=== PATIENT | female | born 1980 | race Caucasian/White ===

== ENCOUNTER 2021-08-25 22:18 | Observation (INO) | payer OTHER, SELFPAY ==
[2021-08-25 22:19] VITALS: BP 130/82; PULSE 106; RESP 17; TEMP 36.6; O2SAT 93; BMI 28.3
--- NOTE | 2021-08-25 22:36 | ED.VIS.GI ---
HPI HPI - GI History of Present Illness Chief Complaint: Abd Pain Informant: patient Abdominal Pain/Flank Pain Onset: Today Context: Sudden Onset Timing: Continuous Quality: Sharp Location: Epigastric, RUQ, LUQ and RLQ Worsened by: Movement Relieved by: Nothing Nausea/Vomiting/Emesis GI Symptom: Positive for Nausea and Vomiting Quality: Negative for Coffee ground and Hematemesis Diarrhea/Melena/Hematochezia GI Symptom: Positive for Diarrhea; Negative for Melena and Hematochezia Associated Symptoms Associated Symptoms: Negative for Dysuria, Frequency and Hematuria Narrative Narrative: Patient presents with abdominal pain that began earlier this morning. Patient states it woke her up out of sleep. Patient states it is constant. Patient states the pain is sharp. Patient states the pain is over the upper abdomen and right lower quadrant. Patient states it is worse with movement and with standing. Patient admits to nausea and one episode of vomiting. Patient denies any hematemesis or coffee-ground emesis. Patient admits to some diarrhea but denies any melena or hematochezia. Patient denies any dysuria, frequency, or hematuria. Patient states she tested positive for COVID-19 earlier today. PFSH PFS Medical History COVID-19 Former smoker Medical History no medical history no medical history Home Medications No Known/Unobtainable [No Known Home Medications] 02/24/17 [History Last Taken Unknown] Allergy/AdvReac Type Severity Reaction Status Date / Time No Known Allergies Allergy Verified 08/25/21 22:22 Surgical History no surgical history no surgical history Social History Smoking Status: Former smoker ROS ROS ED Constitutional Constitutional ED: Denies chills or fever(s) Eyes Eyes: Denies blurry vision or change in vision ENT ENT ED: Reports rhinorrhea and sore throat Cardiovascular Cardiovascular: Denies chest pain or palpitations Respiratory/Chest Respiratory/Chest: Reports cough; Denies dyspnea Gastrointestinal Gastrointestinal: Reports abdominal pain, diarrhea, nausea and vomiting; Denies melena Genitourinary Genitourinary ED: Denies dysuria or hematuria Musculoskeletal Musculoskeletal: Denies back pain or neck pain Integumentary Denies abscess or rash Neurologic Neurologic: Denies headache(s) or weakness Allergic/Immunologic Allergic/Immunologic ED: Denies mouth swelling or urticaria EXAM Physical Exam Const Vital Signs: 08/25/21 22:19 08/25/21 22:47 Temperature 97.9 F Temperature Source Oral Pulse Rate 106 H 94 Respiratory Rate 17 15 Blood Pressure 130/82 H 115/77 Blood Pressure Mean 98 89 Pulse Ox 93 98 Oxygen Delivery Method Room Air Room Air Positive well nourished and well developed General Appearance ED: well developed HEENT Reports moist mucous membranes Neck supple and no JVD Resp normal respiratory effort and clear to auscultation bilaterally Cardio regular rate and regular rhythm GI non-distended GI Narrative: Patient was able to sit up on her without any difficulty. Auscultation: normoactive bowel sounds Palpation: soft and tender epigastric, RLQ, LUQ and RUQ; Negative for guarding Neuro CN's II-XII intact bilaterally, moves all extremities and no sensory deficits noted Sensorium / Orientation: alert, oriented to person, oriented to place and oriented to time Motor Exam: strength 5/5 throughout Psych mental status grossly normal MDM MDM MDM Narrative Medical decision making narrative: Patient was given IV fluids, morphine, and Zofran. CBC was within normal limits. PT was INR and PTT were normal. Comprehensive metabolic profile was within normal limits. Lipase was normal. Serum hCG was negative. COVID-19 rapid antigen was obtained and was positive. CT scan of the abdomen and pelvis was obtained and is pending. Care of the patient was turned over to the oncoming physician pending CT scan results. Lab Data Attestation: I reviewed the patient's lab results. Labs: Laboratory Results - last 24 hr 08/25/21 08/25/21 08/25/21 23:07 23:07 23:07 WBC 10.2 RBC 4.32 Hgb 12.9 Hct 37.0 MCV 85.6 MCH 29.9 MCHC 34.9 RDW Std Deviation 36.4 RDW Coeff of Rosamaria 11.7 Plt Count 300 MPV 9.7 Immature Gran % (Auto) 0.900 Neut % (Auto) 77.5 H Lymph % (Auto) 13.7 L Cherry % (Auto) 7.6 Eos % (Auto) 0.2 Baso % (Auto) 0.1 Absolute Neuts (auto) 7.9 H Absolute Lymphs (auto) 1.40 Nucleated RBC % 0 PT 12.6 INR 1.0 APTT 29.8 Sodium 134 L Potassium 3.3 L Chloride 102 Carbon Dioxide 23.0 Anion Gap 9 BUN 5 L Creatinine 0.77 Estim Creat Clear Calc 79.54 Est GFR (MDRD) Af Amer 106 Est GFR (MDRD) Non-Af 88 BUN/Creatinine Ratio 6.5 L Glucose 122 H Calcium 9.0 Total Bilirubin 0.50 AST 14 L ALT 20 Alkaline Phosphatase 71 Total Protein 7.4 Albumin 3.5 Globulin 3.9 Albumin/Globulin Ratio 0.9 Lipase 74 Serum , Qual 08/25/21 23:07 WBC RBC Hgb Hct MCV MCH MCHC RDW Std Deviation RDW Coeff of Rosamaria Plt Count MPV Immature Gran % (Auto) Neut % (Auto) Lymph % (Auto) Cherry % (Auto) Eos % (Auto) Baso % (Auto) Absolute Neuts (auto) Absolute Lymphs (auto) Nucleated RBC % PT INR APTT Sodium Potassium Chloride Carbon Dioxide Anion Gap BUN Creatinine Estim Creat Clear Calc Est GFR (MDRD) Af Amer Est GFR (MDRD) Non-Af BUN/Creatinine Ratio Glucose Calcium Total Bilirubin AST ALT Alkaline Phosphatase Total Protein Albumin Globulin Albumin/Globulin Ratio Lipase Serum , Qual NEGATIVE Discharge Plan Triage Chief Complaint: Abd Pain ED Provider: Messi Lobo Dx/Rx/DC Orders Clinical Impression: Abdominal pain Instructions: ED Abdominal Pain Unkn Cause Fem Prescriptions: No Action No Known Home Medications RF: 0 Primary Care Provider: Alyse Pierce Referrals: Alyse Pierce DO [Primary Care Provider] - 3-5 Days Disposition Disposition: Home, Self Care
[2021-08-25 22:47] VITALS: BP 115/77; PULSE 94; RESP 15; O2SAT 98
[2021-08-25] MEDS: Morphine 4 MG/ML Syringe IV (23:04)
[2021-08-25] MEDS: Ondansetron 4 MG/2 ML Vial IV (23:04)
[2021-08-25] MEDS: 0.9% Normal Saline 1,000 ML 1000 ML IV (23:04)
[2021-08-25 23:30] LABS: Prothrombin Time (Protime)PT. 12.6 SECONDS (11.7-14.9)
[2021-08-25 23:31] LABS: ALB/GLOB Ratio 0.9 RATIO (0.9-2.4); AST(SGOT) 14 U/L (15-37); Alanine Aminotransfer ALT/SGPT 20 U/L (13-56); Albumin, Serum 3.5 g/dL (3.2-5.0); Alkaline Phosphatase 71 U/L (45-117); Anion Gap 9 (5-15); BUN 5 mg/dL (7-18); BUN/Creat Ratio 6.5 RATIO (10-20); Chloride 102 mmol/L (98-107); Creatinine, Serum 0.77 mg/dL (0.55-1.02); EST Glomerular Filtration Rate 88 mL/min (>60); Est Glom Filt Rate - Afr Amer 106 mL/min (>60); Estimated Creatinine Clearance 79.54 ml/min; Globulin 3.9 g/dL (2.2-4.2); Glucose 122 mg/dL (74-106); Lipase 74 U/L (73-393); Partial Thromboplast Time 29.8 Seconds (24.1-36.2); Potassium 3.3 mmol/L (3.5-5.1); Protein, Total 7.4 g/dL (6.4-8.2); Sodium Level 134 mmol/L (136-145)
[2021-08-25 23:32] LABS: Hemoglobin 12.9 g/dL (12.0-15.0); Red Blood Count 4.32 M/mm3 (4.2-5.4); White Blood Count 10.2 K/mm3 (4.4-11.0)
[2021-08-25 23:33] LABS: Absolute Neutrophil Count 7.9 X10^3/uL (2.0-7.7); Basophil# 0.01 X10^3/uL; Basophil% 0.1 % (0-1); Eosinophil# 0.02 X10^3/uL; Eosinophils% 0.2 % (0-5); Lymphocyte % 13.7 % (19-41); Mean Corp Hgb Conc 34.9 g/dL (32-36); Mean Corpuscular Hgb 29.9 pg (27.0-32.0); Mean Corpuscular Volume 85.6 fL (81-99); Mean Platelet Vol. 9.7 fl (6.2-12.0); Monocyte# 0.78 X10^3/uL; Monocyte% 7.6 % (0-10); NRBC Flagged by Analyzer 0 % (0-5); Neutrophil % 77.5 % (47-70); Platelet Count 300 K/mm3 (150-450); RBC Distribution Width CV 11.7 % (11.6-14.6); RBC Distribution Width SD 36.4 fl (35.1-43.9)
[2021-08-25 23:48] LABS: Internal QC Validated? YES +Cl - CLEAR BKGD; Pregnancy, Serum, hCG Quali. NEGATIVE Negative
[2021-08-26] VITALS (13 sets, daily range): BP systolic 91–111; BP diastolic 48–79; PULSE 60–101; RESP 15–16; TEMP 36.1–37.1; O2SAT 94–99; BMI 28.3
--- NOTE | 2021-08-26 | APP_PTH ---
PATIENT: PIOTR REDDY LOC: MS3 U#:[id number] AGE/SX: 41/F ROOM: LA317 RE08/26/[address]: Dr. Latrice Suárez MD : 1980 BED: 1 DIS: 08/26/2021 SPEC #: [id number] RECD: 08/26/21 12:43 STATUS: MERRILL COONEYEduardo #: [id number] PENELOPE: 08/26/21 00:[address]: Latrice Suárez DEPT: SURGICAL PATHOLOGY RECD BY: Vimal Schmidt ENTERED: 08/26/21 12:44 SP TYPE: APPENDIX OTHR DR: Dr. Alyse Pierce, DO Tissues: Appendix, NOS Procedures: Surgery Specimen Level III HEADER OPERATION: Laparoscopic appendectomy PRE-OP DIAGNOSIS: Acute appendicitis, COVID-19 TISSUE SUBMITTED: Appendix MICROSCOPIC DIAGNOSIS Appendix, appendectomy: Acute necrotizing appendicitis. Acute serositis. AM:ba 08/27/2021 MICROSCOPIC DESCRIPTION Slides are reviewed. GROSS DESCRIPTION Received in fixative is one container labeled with the patient's name and designated appendix. The specimen consists of a vermiform appendix measuring 7 cm in length and 0.8 cm in average diameter. No gross perforations are evident. Serial sections reveal fecal material. No mass lesion is identified. Transit Operations Supervisor sections are submitted in one cassette. / AM:ba 08/26/2021 TC:2 CPT: 06548
[2021-08-26 01:21] LABS: Bacteria 0 SEEN /hpf (None Seen); Mucous, Urine 0 SEEN /hpf (<or=2+); Red Blood Cells-Urine 0 SEEN /hpf (0-5); Squamous Epithelial Cells - UA 0 SEEN /hpf (5-10)
[2021-08-26 01:22] LABS: Color, Urine Yellow (Yellow); Glucose, Dipstick Normal (Normal); Ketone-Dipstick Negative (Negative); Leukocyte Esterase-Dipstick 25 /ul (Negative); Nitrite-Dipstick Negative (Negative); Occult Blood-Urine 25 /ul (Negative); Protein-Dipstick Negative (Negative); Specific Gravity, Urine 1.005 (1.002-1.030); Urine Bilirubin Dipstick Negative (Negative); Urine Clarity Clear (Clear); Urine Urobilinogen Normal (Normal)
[2021-08-26 01:33] LABS: White Blood Cells 0-5 SEEN /hpf (0-5)
[2021-08-26] MEDS: morphine 8 MG/ML Syringe 6 MG IV (01:49)
[2021-08-26] MEDS: Ondansetron 4 MG/2 ML Vial IV (01:49)
--- NOTE | 2021-08-26 04:35 | PCM.HP.STD ---
HPI - General HPI Narrative PIOTR REDDY, is a 41 F who presents to the ER due to right lower quadrant abdominal pain which started at 9 PM yesterday. Patient states although yesterday she had mid abdominal pain. Patient did not have much to eat yesterday. Patient also started to have symptoms of head congestion/scratchy throat about 10 days ago, 3 days into it did do a Covid test which was negative also did an additional 1 which was negative because sore throat. However yesterday with a new abdominal pain she retested and was positive. Test here was also positive. Patient states her symptoms are improved she still has some mild head congestion. Patient denies any issues with breathing and 9% on room air. CT abdomen pelvis was consistent with acute appendicitis. Patient's white blood count was 10.2. Patient to get Zosyn IV in the ER. [facility] Medical History COVID-19 Former smoker Medical History no medical history Home Medications No Known/Unobtainable [No Known Home Medications] 02/24/17 [History Last Taken Unknown] Allergy/AdvReac Type Severity Reaction Status Date / Time No Known Allergies Allergy Verified 08/25/21 22:22 Surgical History no surgical history Social History Smoking Status: Former smoker Vital Signs Vital Signs Vital Signs: 08/25/21 22:19 08/25/21 22:47 08/26/21 01:13 Temperature 97.9 F Temperature Source Oral Pulse Rate 106 H 94 101 H Respiratory Rate 17 15 15 Blood Pressure 130/82 H 115/77 111/79 Blood Pressure Mean 98 89 89 Blood Pressure Source Blood Pressure Position Blood Pressure Location Pulse Ox 93 98 99 Oxygen Delivery Method Room Air Room Air Room Air 08/26/21 02:13 08/26/21 02:14 08/26/21 03:25 Temperature 98.8 F Temperature Source Oral Pulse Rate 96 97 Respiratory Rate 15 15 16 Blood Pressure 110/71 110/71 111/63 Blood Pressure Mean 84 84 79 Blood Pressure Source Monitor Blood Pressure Position Semi-Fowlers Blood Pressure Location Right Arm Pulse Ox 98 95 96 Oxygen Delivery Method Room Air Room Air Room Air Weight Weight: 160 lb Body Mass Index (BMI) 28.3 Physical Exam Const alert, oriented x3 and no apparent distress HEENT normocephalic and head/scalp atraumatic Resp normal respiratory effort Cardio regular rate GI soft to palpation; Negative for non-distended Palpation: tender RLQ; Negative for guarding Extremity no clubbing, cyanosis or edema Neuro CN's II-XII intact bilaterally Psych mental status grossly normal Results Lab / Micro Data Result Diagrams: 08/25/21 23:07 08/25/21 23:07 Labs: Laboratory Results - last 24 hr 08/25/21 23:07: WBC 10.2, RBC 4.32, Hgb 12.9, Hct 37.0, MCV 85.6, MCH 29.9, MCHC 34.9, RDW Std Deviation 36.4, RDW Coeff of Rosamaria 11.7, Plt Count 300, MPV 9.7, Immature Gran % (Auto) 0.900, Neut % (Auto) 77.5 H, Lymph % (Auto) 13.7 L, [place] % (Auto) 7.6, Eos % (Auto) 0.2, Baso % (Auto) 0.1, Absolute Neuts (auto) 7.9 H, Absolute Lymphs (auto) 1.40, Nucleated RBC % 0 08/25/21 23:07: PT 12.6, INR 1.0, APTT 29.8 08/25/21 23:07: Sodium 134 L, Potassium 3.3 L, Chloride 102, Carbon Dioxide 23.0, Anion Gap 9, BUN 5 L, Creatinine 0.77, Estim Creat Clear Calc 79.54, Est GFR (MDRD) Af Amer 106, Est GFR (MDRD) Non-Af 88, BUN/Creatinine Ratio 6.5 L, Glucose 122 H, Calcium 9.0, Total Bilirubin 0.50, AST 14 L, ALT 20, Alkaline Phosphatase 71, Total Protein 7.4, Albumin 3.5, Globulin 3.9, Albumin/Globulin Ratio 0.9, Lipase 74 08/25/21 23:07: Serum , Qual NEGATIVE 08/26/21 01:15: Urine Color Yellow, Urine Clarity Clear, Urine pH 7.0, Ur Specific Letcher 1.005, Urine Protein Negative, Urine Glucose (UA) Normal, Urine Ketones Negative, Urine Occult Blood 25 H, Urine Nitrite Negative, Urine Bilirubin Negative, Urine Urobilinogen Normal, Ur Leukocyte Esterase 25 H, Urine RBC 0 SEEN, Urine WBC 0-5 SEEN, Ur Squamous Epith Cells 0 SEEN, Urine Bacteria 0 SEEN, Urine Mucus 0 SEEN Micro: Microbiology 08/25/21 23:06 Nasal Secretion SARS-CoV-2 Antigen (Rapid) - Final SARS-CoV-2 (COVID 19) Radiology Impression Abdomen/Pelvis CT 08/26/21 22:42 IMPRESSION: Dilated fluid-filled mid appendix with appendiceal wall thickening and mild periappendiceal fat stranding. Findings concerning for early or mild appendicitis. Electronically Signed: Juan Calzada MD at 0:41 EST , Assessment & Plan Assessment/Plan (1) Acute appendicitis: (2) COVID-19: PLAN: 1. Discussed procedure laparoscopic appendectomy, possible open along with the risk but not limited to bleeding, infection/abscess, injury to another organ (small bowel, colon, etc.), adhesion, hernia at incision sites, and anesthesia. Did also discussed with patient she can be at a higher risk due to Covid for respiratory issues currently patient is 99% on room air and has not had any breathing issues and symptoms started about 10 days ago. Also discussed possible issues with blood clots due to Covid. We will plan to give patient some anticoagulation after surgery possible Lovenox versus heparin depending if any pork could begin Lovenox as is allergic. Also instructed patient that postoperatively would recommend be on at least a full-strength aspirin and be up moving around due to possible increased risk with clotting. Did discuss with patient that nonoperative approach has been done for appendicitis however should be in the hospital for several days with IV antibiotics since no guarantee that she would need her appendix out later. Patient was agreeable proceed with surgery. Patient no further questions this time. Was agreeable to proceed. Latrice Suárez M.D. Pager: [phone] [facility] [address] [place] [address], [address] [place] [id number] Office: [phone] Procedure Criteria Elective Risks - COVID COVID Risk Discussion: Patient is Covid positive.
[2021-08-26] MEDS: Bupivacaine Mpf 0.5% 30 ML VIAL (06:10)
--- NOTE | 2021-08-26 06:28 | PCM.OPRPT ---
Report of Operation Date of Procedure: 08/26/21 Pre-Operative Diagnosis: Acute appendicitis, positive Covid Post-Operative Diagnosis: Same Surgery/Procedure Performed:: Laparoscopic appendectomy Surgeon: aLtrice Suárez Type of Anesthesia: General/Supplemental Anesthesiologist: Ramon Thompson Special Medications: Zosyn IV given in ER for acute appendicitis Specimen's removed: Appendix Estimated Blood Loss (mL): < 10 cc Description of Procedure: Indications: 41-year-old female presented to the ER with new right lower quadrant pain yesterday evening at 9 PM. On workup she was found to have acute appendicitis on CT and a white blood count of 10.2 with a left shift. Patient was started on antibiotics in the ER for acute appendicitis-Zosyn IV. Description of the procedure: Covid precautions were also followed for the surgery. The patient was placed on operating table in supine position. General anesthesia was induced. A timeout was completed verifying correct patient, procedure, position and special equipment prior to beginning procedure. Abdomen was prepped and draped in usual sterile fashion. Incision was made in the natural skin line above the umbilicus with a 15 blade scalpel. The fascia was elevated and incised. Entry into the peritoneum was confirmed visually and no bowel was noted in the vicinity of the incision. The Bynum trocar was placed under direct vision. Abdomen insufflated with a pressure of 12-15 mmHg. Patient tolerated insertion well. The scope was inserted and the abdomen inspected. No injuries from initial trocar placement were noted. Minimal amount of fluid was seen in the right lower quadrant. An direct visualization 2 -5 mm trocars were placed one above the symphysis pubis and below the hairline and one in the left lower quadrant lateral to the rectus muscle. Care is taken to avoid injury to the bladder and inferior epigastric vessels. The table was placed in Trendelenburg position with the right side elevated. The appendix was grasped with atraumatic grasper and elevated. It was noted to be inflamed. A window was developed in the mesoappendix at the point between the base of the appendix and the cecum. An endoscopic 45 mm linear cutting stapler blue load was then used to divide and staple the base of the appendix. Enseal was used to divide the mesoappendix The appendix was withdrawn into the Bynum trocar after being placed endoscopically retrieval bag. Appendix was sent to pathology. The appendiceal stump was then irrigated and hemostasis was assured. Fluid was suctioned no other pathology was identified. Secondary trochars were removed under direct visualization. No bleeding was noted trocar sites. The laparoscope withdrawn and the umbilical trocar removed. The abdomen was allowed to collapse through the ultrafilter. Local anesthesia of 20 mL of 0.5% Marcaine was used at the incision sites. The umbilical trocar site was closed with the [id number] 0 Vicryl suture. The skin was closed up to clear sutures of 4-0 Monocryl and Steri-Strips. The patient was extubated. The patient tolerated the procedure well and was taken to the postanesthesia care unit in satisfactory condition. Complications None
[2021-08-26] MEDS: Lactated Ringers 1,000 ML 15 ML IV (07:00)
[2021-08-26] MEDS: 0.9% Normal Saline 1,000 ML 120 ML IV (08:21)
[2021-08-26] MEDS: Aspirin 325 MG Tablet PO (10:22)
[2021-08-26] MEDS: Acetaminophen 325 MG Tablet 650 MG PO (10:22)
--- NOTE | 2021-08-26 11:55 | CASEMGMT ---
GUILHERME MONTERO Assessment: Face to Face with pt for initial transition planning/care coordination assessment. RN WINSTON introduced self and role at [facility], pt voices understanding and consents to assessment. Pt is A/O x4 and answers all questions appropriately at this time. Pt sitting up in chair on RA in no distress. Care providers, pharmacy, and demographics verified/updated. Admitting Dx: acute appendicitis, +COVID PCP:Kari Specialists:Pt denies. Preferred Pharmacy: [facility] Insurance: MMO Prescription Benefit: yes LW/HPOA: Pt denies having a LW/DPOA and denies need for info regarding AD. LNOK: Karol Rodriguez, mother Living Arrangements: Pt lives with 18 year old son in a single story house with 2 steps to enter. Pt is I in ADL's and denies concerns at home. Transportation: Pt drives self and denies concerns with transportation. DME/HHC/SNF: Pt denies having any DME in the home, previous HHC or SNF stays. Pt states no concerns with going home at time of dc. Pt states no further concerns/needs. CM to follow. Advised pt to ask CM if any further question/concerns/needs arise, voices understanding. Pt tested positive for COVID at home, [facility] and [facility]. Pt has had symptoms for 10 days. Her son is negative. Pt has family who can provide groceries and supplies while in quarantine, if she should be in quarantine upon dc. Pt Goal: Home Plan: Home
--- NOTE | 2021-08-26 12:53 | EX.PCM.DISCH ---
Discharge Instructions Diet Discharge Diet: Light diet - advance as tolerated Activity Discharge Activity: May Not Drive (while taking narcotic pain medications.) May shower in (days): 1 Lifting Restrictions: no lifting >20 lbs x 2 wks, no strenuous exercise for 4 wks Dressing / Incision Call your doctor if your incision/area has: Continuous Slow Oozing, Sudden Increased Bleeding, Increased Pain/ Swelling, Increased Redness, Foul Smelling Discharge and Swelling at the incision site Call your doctor if you observe: Fever of 101 or Higher Remove Dressing in: 2 days Cleanse incision/area with: Soap & Water Additional Dressing/Incision Instructions:: Steri-Strips will fall off in 7 to 10 days, if they do not fall off okay to remove after 10 days. Follow Up Care Please Follow Up With: Latrice Suárez MD When: Call the office for a follow-up appointment 2 weeks--May be a phone visit due to +COVID initially; after 5 PM and on the weekends call [phone] with any concerns. Test Results: Test results from this visit will be discussed in further detail at your follow-up appointment, if applicable. Discharge Plan Admission Admit Date/Time: 08/26/21 05:05 Attending Provider: Latrice Suárez Primary Care Provider: Alyse Pierce Instructions Additional Instructions / Restrictions: Take wopj-hmf-nydobqi aspirin 325 mg p.o. q day for at least 2 weeks due to being increased risk of clots with Covid. Patient unable to take Lovenox or heparin due to sikhism beliefs due to porcine products. Discharge Orders/Prescriptions Prescriptions: New oxycodone-acetaminophen 5-325 mg tablet 1 - 2 tab PO Q6H PRN (Reason: pain) 3 Days Qty: 10 RF: 0 Referrals / Follow Up: Alyse Pierce DO [Primary Care Provider] - 3-5 Days Disposition Disposition (needs filled in before D/C Order can be placed): Home, Self Care
[2021-08-26] MEDS: oxyCODONE 5 MG Tablet PO (14:45)
--- NOTE | 2021-08-26 22:42 | CT_ITS ---
STUDY: CT ABDOMEN AND PELVIS WITH CONTRAST REASON FOR EXAM: Female, 41 years old. Abdominal pain -- IV PO Contrast RADIATION DOSAGE (If Supplied By Facility): CTDIvol = ( 13.60 ) mGy, DLP = ( 848.71 ) mGycm TECHNIQUE: Transaxial images were obtained from the dome of the diaphragm to the symphysis pubis with oral contrast. Oral and amp; IV Gastrografin and amp; 100mL Isovue-370 was administered. Sagittal and coronal images were reconstructed. Individualized dose optimization techniques were used for this CT. COMPARISON: None. FINDINGS: The visualized lung bases demonstrate minimal bibasilar atelectasis. Tiny nodular right lower lobe density is partially visualized likely due to atelectasis. The visualized portions of the heart are within normal limits. Normal liver. Normal gallbladder and extrahepatic biliary system. Normal spleen. Normal pancreas. Normal bilateral adrenal glands. Normal right kidney. Normal left kidney. Normal visualized stomach. Normal small intestine. Normal colon. The appendix is dilated in its midportion with fluid measuring up to approximately 1.3 cm in diameter. There is appendiceal wall thickening and mild periappendiceal fat stranding changes, series 2 image [id number]. Normal abdominal aorta. Normal inferior vena cava. Normal retroperitoneum. Normal urinary bladder. Normal abdominal wall. Normal osseous structures. CT/Abdomen/Pelvis WITH Contrast IMPRESSION: Dilated fluid-filled mid appendix with appendiceal wall thickening and mild periappendiceal fat stranding. Findings concerning for early or mild appendicitis. Electronically Signed: Juan Calzada MD at 0:41 EST ,
== END 2021-08-26 15:15 | disposition home or self-care (01) ==
LOC: ED 08-26 00:02 → MS3 08-26 05:27
PROVIDERS: Admitting Provider Surgery; Emergency Provider Emergency Medicine; PCP Internal Medicine; Visit Provider Surgery
PROC: 0DTJ4ZZ Resection of Appendix, Percutaneous Endoscopic Approach (ICD-10-PCS; CPT 44970; principal; 2021-08-26 05:00)
DX: K35.80 Unspecified acute appendicitis (principal); Z87.891 Personal history of nicotine dependence; U07.1 COVID-19
CPT/HCPCS: 44970; 00840; 74177; 80053; 81001; 83690; 84703; 85025; 85610; 85730; 87426; 88304; 96361; 96365; 96376; 99218; 99285; J7030; J7050; J7120; Q9967; A4216; C1760; G0378; J2405

== ENCOUNTER 2021-09-01 13:56 | Outpatient (CLI) | payer OTHER, SELFPAY ==
--- NOTE | 2021-09-01 14:02 | VDUE_ITS ---
Reason For Study: Left arm swelling Right Proximal Left Proximal Right subclavian vein is spontaneous, widely Left jugular vein is spontaneous, widely patent, phasic, with no intraluminal patent, phasic, with no intraluminal echogenicity noted. echogenicity noted. Left subclavian vein is spontaneous, widely patent, phasic, with no intraluminal echogenicity noted. Left Arm Left axillary vein is spontaneous, patent, phasic, competent, compressible and demonstrates augmentation. Left brachial vein is compressible. Left cephalic vein is compressible. Acute superficial vein thrombosis is noted in the left Basilic vein from prox bicep to antecube. Left Lower Arm Left radial vein is compressible. Left ulnar vein is compressible. Patient Safety Preliminary report to Tito. VL/Venous Duplex US, Unilateral Interpretation Summary Deep veins of the left upper extremity are patent and compressible segmentally. There is no evidence of deep vein thrombosis. Acute superficial thrombophlebitis is noted in the lef t basilic vein from the proximal bicep to the antecubital space. The left cephalic vein is patent a nd compressible. Ordering Physician: Ruthy Gale Referring Physician: Alyse Pierce M.D. Performed By: Marci Chaves RVT ?
== END 2021-09-01 23:59 | disposition home or self-care (01) ==
LOC: CVS 13:59
PROVIDERS: PCP Internal Medicine; Visit Provider Nurse Practitioner
DX: M79.89 Other specified soft tissue disorders (principal)
CPT/HCPCS: 93971

== ENCOUNTER 2022-07-27 08:51 | Day surgery (SDC) | payer OTHER, SELFPAY ==
[2022-07-27] VITALS (9 sets, daily range): BP systolic 90–119; BP diastolic 54–78; PULSE 54–80; RESP 12–18; TEMP 35.9–36.8; O2SAT 95–100; BMI 29.4
[2022-07-27 09:15] LABS: Internal QC Validated? YES +Cl - CLEAR BKGD; Pregnancy, Urine Negative Negative
[2022-07-27] MEDS: Lactated Ringers 1,000 ML 15 ML IV (09:22)
--- NOTE | 2022-07-27 09:23 | PCM.HP.BLA ---
History and Physical Date of Admission: 07/27/22 Date of Service:? 07/22/22 MR#: [id number] Acct: [id number] Name:PIOTR SETHI Rep #: [id number] : 1980 ? ? Provider: Dr. Latrice Suárez MD Age/Sex:? 42/F ? ? [place] [facility] [place]: Signed Intake Vital Signs ? 08/26/2201:14 07/22/2307:33 Height 5 ft 3 in 5 ft 3 in Weight: ? 168 lb 6 oz BMI ? 29.8 BP ? 116/81 H Blood Pressure Location ? Rt brachial Position ? Sitting Respiration ? 18 Pulse ? 75 Pulse Source ? NIBP Temp ? 97.6 F L Temp Source ? Temporal Pulse Oximetry (%) ? 98 Oxygen Delivery Method ? room air Intake Visit Reasons:?cscope/rectal bleed Chief Complaint: blood with BMs Start Up Specialist Required: No Is patient in pain?: No Allergies No Known Allergies Allergy (Verified 07/22/22 08:34) Medications hydrocortisone-pramoxine 2.5 %-1 % rectal cream [address] TID-QID PRN hemorrhoids #30 grams 07/22/22 [Rx Confirmed 07/22/22] Is last menstrual period known: No Post menopausal: No Patient : No PFSH Medical History? COVID-19 Former smoker Hemorrhoids Surgical History? History of colonoscopy (~2002) S/P laparoscopic appendectomy Family History?(Updated 07/22/22 @ 08:33 by Abigail Javed) Grandfather Colon cancerAunt Colon cancer Social History? Smoking Status:? Former smoker HPI HPI HPI: 2-year-old female presents due to bright red blood per rectum.? Patient states she has occasionally had bleeding per rectum and has a history of hemorrhoids.? However last it seemed different and also on Monday she had an increased amount and just a little bit on Monday.? Patient states it is bright red denies any obvious clots.? Patient's last colonoscopy was in 2003 due to abdominal pain at that time after her negative per patient.? Patient states she does occasionally get a little bit of cramping abdominal pain when she was having this bright red blood with her bowel movements.? Patient states she does have a bowel movements daily.? Denies any immediate family history of colon cancer.? Patient did see her PCP and have an endoscopy which she only saw a small hemorrhoid at that time per patient. ROS General General: Yes weight change and fatigue; No appetite, colon cancer, breast cancer or weakness HEENT HEENT: No difficulty swallowing, eye injury, eye surgery, swollen glands or hoarseness Endo Endocrine: No thyroid disease, diabetes mellitus, thyroid cancer, Hair loss, heat intolerance or cold intolerance Musc Musculoskeletal: No back problems, arthritis, rheumatoid arthritis, gout or joint pain Cardio Cardiovascular: No murmur, pacemaker, heart disease, atrial fibrillation, high blood pressure, heart attack, heart stent, palpitations, shortness of breat with exertion or chest pain Psych Psychiatric: No depression, anxiety or hearing voices Resp Respiratory: No shortness of breath, No sleep apnea, No cough, No COPD, No asthma, No emphysema and No wheezing Gastro Gastrointestinal: Yes abdominal pain, No nausea or vomiting, No diarrhea, No constipation, Yes blood in stool, No acid reflux, Yes hemorrhoids, No ulcers, No gallbladder problem and No black,tarry stools Amrik Hematologic: No blood thinners, No blood disorders, No bleeding, No anemia and No blood clots Neuro Neurologic: No numbness, No tingling and No weakness Exam Const General: cooperative, healthy appearing and no acute distress Nutritional Appearance: well nourished [facility] Head: normal to inspection Resp Effort & Inspection: normal respiratory effort Auscultation: clear to auscultation bilaterally Cardio Rate: regular rate Rhythm: regular rhythm GI Inspection: non-distended Palpation: soft, no guarding and nontender Skin General: no rashes or lesions noted Neuro General: patient alert, patient awake and patient oriented x3 Extrem General: no clubbing, cyanosis or edema Psych Affect: normal affect Assessment and Plan Assessment and Plan (1) BRBPR (bright red blood per rectum): ?Status:?Acute (2) Hemorrhoids: ?Status:?Acute ? ? ? Orders: Orders Colonoscopy Today ? Medications: New hydrocortisone-pramoxine 2.5-1 % 1 applic? CT TID-QID PRN 30 grams 0RF hemorrhoids ? ? Plan I have discussed the above with the patient. I have offered the patient colonoscopy for evaluation. I have explained the risks/benefits of the procedure and described the procedure.? I have discussed the risks with the patient, including but not limited to:? infection, bleeding, perforation of the GI tract requiring emergency surgery, inability to complete the procedure, injury to any internal organs, complications of anesthesia, etc. - the patient understands and agrees to proceed. I have answered all the patient's questions to the patient's satisfaction and the patient has no further questions. The patient has been given instructions for the colon cleansing preparation.? 1 day of clears, MiraLAX Dulcolax split prep. Latrice Suárez M.D. Pager: [phone] [facility] [address] [place] [address], [address] [place] [address] Office: [phone] Coding Level of Care Code Off vis,new,level 3 Diagnoses BRBPR (bright red blood per rectum)? K62.5 Hemorrhoids? K64.9 07/22/22 0859 <Electronically signed by Latrice Suárez MD> Date Latrice Suárez MD
--- NOTE | 2022-07-27 10:07 | OP.COLON_ITS ---
Patient Name: Carole Rodriguez Procedure Date: 07/27/2022 9:28 AM Date of : 1980 Age: 42 Procedure: Colonoscopy Indications: Rectal bleeding Providers: Latrice Suárez MD Medicines: Monitored Anesthesia Care Patient Profile: This is a 42 year old female. First Colonoscopy: 2003. Last Colonoscopy: 2003. Complications: No immediate complications. Procedure: Pre-Anesthesia Assessment: - Prior to the procedure, a History and Physical was performed, and patient medications and allergies were reviewed. The patient's tolerance of previous anesthesia was also reviewed. The risks and benefits of the procedure and the sedation options and risks were discussed with the patient. All questions were answered, and informed consent was obtained. Prior Anticoagulants: The patient has taken no previous anticoagulant or antiplatelet agents. ASA Grade Assessment: Per anesthesia. After reviewing the risks and benefits, the patient was deemed in satisfactory condition to undergo the procedure. After I obtained informed consent, the scope was passed under direct vision. Throughout the procedure, the patient's blood pressure, pulse, and oxygen saturations were monitored continuously. The Colonoscope was introduced through the anus and advanced to the cecum, identified by the appendiceal orifice, ileocecal valve and palpation. The colonoscopy was performed without difficulty. The patient tolerated the procedure well. The quality of the bowel preparation was good. Scope In: 9:45:51 AM Scope Withdrawal Time 0 hours 6 minutes 35 seconds Scope Out: 10:01:33 AM Total Procedure Duration Time 0 hours 15 minutes 42 seconds Findings: Hemorrhoids were found on perianal exam. The entire examined colon appeared normal. Non-bleeding external and internal hemorrhoids were found. The hemorrhoids were small and Grade I (internal hemorrhoids that do not prolapse). Impression: - Hemorrhoids found on perianal exam. - The entire examined colon is normal. - Non-bleeding external and internal hemorrhoids. - No specimens collected. Recommendation: - Discharge patient to home. - Resume previous diet. - Continue present medications. - Repeat colonoscopy in 10 years for screening purposes. Procedure Code(s): --- Professional --- 84561, PT, Colonoscopy, flexible; diagnostic, including collection of specimen(s) by brushing or washing, when performed (separate procedure) Diagnosis Code(s): --- Professional --- K64.9, Unspecified hemorrhoids K62.5, Hemorrhage of anus and rectum CPT copyright 2017 [employer]. All rights reserved. The codes documented in this report are preliminary and upon pourer review may be revised to meet current compliance requirements. MD Latrice Magana MD 07/27/2022 10:07:04 AM This report has been signed electronically. Number of Addenda: 0 Note Initiated On: 07/27/2022 9:28 AM
--- NOTE | 2022-07-27 10:08 | OP.CCLET_ITS ---
07/27/2022 Alyse Pierce [address] [place] [address] Re : Colonoscopy procedure for Carole Rodriguez Dear Dr. Pierce This procedure was performed on Wednesday, July 27, 2022. My impressions and recommendations are as follows: Impressions : - Hemorrhoids found on perianal exam. - The entire examined colon is normal. - Non-bleeding external and internal hemorrhoids. - No specimens collected. Recommendations : - Discharge patient to home. - Resume previous diet. - Continue present medications. - Repeat colonoscopy in 10 years for screening purposes. My findings are described in the full procedure note, which is enclosed. If I can be of further assistance, please feel free to contact me at Doctor phone number(s): , Work: . Sincerely, MD Latrice Magana MD 07/27/2022 10:07:04 AM This report has been signed electronically.
== END 2022-07-27 11:05 | disposition home or self-care (01) ==
LOC: EN 08:57 → AC 08:58
PROVIDERS: Anesthesiology; PCP Internal Medicine; Referring Provider Internal Medicine; Visit Provider Surgery
PROC: 0DJD8ZZ Inspection of Lower Intestinal Tract, Via Natural or Artificial Opening Endoscopic (ICD-10-PCS; CPT 45378; principal; 2022-07-27 09:55)
DX: Z12.11 Encounter for screening for malignant neoplasm of colon (principal); K64.0 First degree hemorrhoids; K64.4 Residual hemorrhoidal skin tags; Z80.0 Family history of malignant neoplasm of digestive organs; Z86.16 Personal history of COVID-19; Z87.891 Personal history of nicotine dependence
CPT/HCPCS: 45378; 81025; J7120; J2405

== ENCOUNTER → 2022-12-05 | Outpatient (CLI) | payer OTHER, SELFPAY ==
[2022-12-09 17:07] LABS: HPV APTIMA, High Risk Negative (Negative)
== END | disposition home or self-care (01) ==
LOC: LABSPEC 12:14
PROVIDERS: Referring Provider Advanced Practice Midwife; Visit Provider Advanced Practice Midwife
DX: Z01.419 Encounter for gynecological examination (general) (routine) without abnormal findings (principal)
CPT/HCPCS: 87624; 88175; G0145

== ENCOUNTER → 2022-12-19 | Outpatient (CLI) | payer OTHER, SELFPAY ==
--- NOTE | 2022-12-19 08:55 | US_ITS ---
STUDY: ULTRASOUND TRANSVAGINAL CLINICAL: Female, 42 years old. Irregular menses TECHNIQUE: Transvaginal COMPARISON: None. FINDINGS: Normal uterine size measuring 9.1 cm in maximal craniocaudal dimension. There are multiple uterine fibroids, press smith helper notes 3 with the largest measuring 2.8 x 2.8 x 2.8 cm Normal endometrial thickness measuring 3.3 mm. There are no endometrial masses, and there is no fluid in the endometrial cavity. Normal uterine cervix. Normal right ovary, measuring 2.4 x 2.1 x 1.8 cm. There are multiple follicles without a dominant cyst. Normal left ovary, measuring 1.9 x 1.9 x 1.5 cm. There are multiple follicles without a dominant cyst. There is no free fluid in the pelvis. Bladder is sonographically normal US/Transvaginal Non- IMPRESSION: Fibroid uterus No suspicious adnexal mass or free fluid Electronically Signed: Jc Mckee MD at 16:24 EDT ,
[2022-12-19 09:58] LABS: Absolute Lymphocyte Count 2.08 X10^3/uL (0.83-4.51); Absolute Neutrophil Count 2.9 X10^3/uL (2.0-7.7); Basophil# 0.05 X10^3/uL; Basophil% 0.9 % (0-1); Eosinophil# 0.18 X10^3/uL; Eosinophils% 3.1 % (0-5); Hematocrit 39.8 % (37-47); Hemoglobin 13.7 g/dL (12.0-15.0); Lymphocyte # 2.08 X10^3/ul (0.83-4.51); Lymphocyte % 36.2 % (19-41); Mean Corp Hgb Conc 34.4 g/dL (32-36); Mean Corpuscular Hgb 30.2 pg (27.0-32.0); Mean Corpuscular Volume 87.7 fL (81-99); Mean Platelet Vol. 9.5 fl (6.2-12.0); Monocyte# 0.48 X10^3/uL; Monocyte% 8.3 % (0-10); NRBC Flagged by Analyzer 0 % (0-5); Neutrophil # 2.94 X10^3/uL (2.7-7.7); Neutrophil % 51.2 % (47-70); Platelet Count 348 K/mm3 (150-450); RBC Distribution Width CV 12.3 % (11.6-14.6); RBC Distribution Width SD 39.2 fl (35.1-43.9); Red Blood Count 4.54 M/mm3 (4.2-5.4); White Blood Count 5.8 K/mm3 (4.4-11.0)
[2022-12-19 10:20] LABS: Thyroid Stim Hormone (TSH) 1.46 uIU/mL (0.358-3.74)
== END | disposition home or self-care (01) ==
PROVIDERS: PCP Internal Medicine; Referring Provider Advanced Practice Midwife; Visit Provider Advanced Practice Midwife
DX: N92.6 Irregular menstruation, unspecified (principal)
CPT/HCPCS: 36415; 76830; 84443; 85025

== ENCOUNTER 2023-03-11 21:35 | Emergency (ER) | payer OTHER, SELFPAY ==
[2023-03-11 21:36] VITALS: BP 156/96; PULSE 74; RESP 16; TEMP 36.6; O2SAT 99; BMI 29.9
[2023-03-11 21:49] VITALS: O2SAT 97
--- NOTE | 2023-03-11 21:49 | EKG12_ITS ---
Test Reason : DYSRHYTHMIA Blood Pressure : / mmHG Vent. Rate : 064 BPM Atrial Rate : 064 BPM P-R Int : 160 ms QRS Dur : 072 ms QT Int : 396 ms P-R-T Axes : 015 015 017 degrees QTc Int : 408 ms Normal sinus rhythm Normal ECG Confirmed by CRISTOFER ROJAS, KELY ([id number]), brands editor JANES CAGE ([id number]) on 03/20/2023 7:24:25 AM Referred By: Confirmed By:KELY CLEVELAND MD
--- NOTE | 2023-03-11 21:51 | ED.VIS.CHEST ---
HPI History of Present Illness Chief Complaint: Chest Pain Narrative Narrative: Presents with chest pain earlier today, it is also epigastric associate with some nausea and loose stools. She has no pleuritic component. No back pain or tearing sensation. She did have some radiation of the pain to her left arm. No lower extremity edema or calf pain. She does have a history of MTHFR. [facility] Medical History COVID-19 Former smoker Gastric reflux Hemorrhoids History of echocardiogram Wears contact lenses Wears glasses Home Medications hydrocortisone-pramoxine 2.5 %-1 % rectal cream 1 applic NV TID-QID PRN hemorrhoids #30 grams 07/22/22 [Rx Last Taken Unknown] ascorbic acid (vitamin C) 500 mg capsule,extended release (Vitamin C) 500 mg PO DAILY 07/26/22 [History Last Taken Unknown] multivitamin 1 tab PO DAILY 07/26/22 [History Last Taken Unknown] vit B5 50 mg-B6 25 mg-PABA 25 yw-kcyhrcxpm-tmpezzkz-P.ginseng capsule (Adrenal Essence) 1 cap PO DAILY 07/26/22 [History Last Taken Unknown] vitamin A-vitamin C-vitamin E 1 tab PO DAILY 12/05/22 [History Last Taken Unknown] vitamin B complex 1 cap PO DAILY 12/05/22 [History Last Taken Unknown] tranexamic acid 650 mg tablet (Lysteda) 650 mg PO TID #30 tabs 01/10/23 [Rx Last Taken Unknown] Allergy/AdvReac Type Severity Reaction Status Date / Time No Known Allergies Allergy Verified 03/11/23 21:37 Family History Grandfather Colon cancer Aunt Colon cancer Surgical History History of colonoscopy (~2002) Hx of wisdom tooth extraction S/P laparoscopic appendectomy Social History Smoking Status: Former smoker ROS ROS ED ROS Narrative All systems negative except as indicated General: No fever Eyes: No visual changes ENT: No upper airway congestion, normal voice Neck: No neck pain Cardiovascular: As in HPI Respiratory: No shortness of breath or cough Gastrointestinal: Gastric pain with loose stools and nausea. Genitourinary: No dysuria Musculoskeletal: Denies myalgias no difficulty with ambulation Skin: No rash Neurological: No memory loss, confusion or any focal weakness Psych: No recent behavioral changes Hematologic: No easy bleeding or easy bruising EXAM Physical Exam Narrative Exam Narrative: Physical exam General: Well nourished, Well developed, No Acute Distress Head: Normocephalic, Atraumatic Eyes: Conjunctiva not pale ENT: Moist mucous membranes Neck: Supple, Nontender, No lymphadenopathy Cardiovascular: Regular rate, Regular rhythm Respiratory: No distress, CTA bilaterally Abdomen: Soft, Nontender, Nondistended Back: Nontender, Normal Inspection. Negative for: CVA tenderness Extremities: Nontender, No edema Skin: Normal color, No rash Neurological: Alert, Normal Strength, Normal Sensation Const Vital Signs: 03/11/23 21:36 Temperature 97.8 F Temperature Source Temporal Pulse Rate 74 Respiratory Rate 16 Blood Pressure 156/96 H Blood Pressure Mean 116 Pulse Ox 99 Oxygen Delivery Method Room Air MDM MDM MDM Narrative Medical decision making narrative: Sinus rhythm with a rate of 64. Normal NV and QTc interval. No ischemic changes. Interpreted by emergency doctor. Chest x-ray read by me as normal. ED course: Patient does not have any evidence of pulmonary embolism based on a normal D-dimer and low suspicion. There is no evidence of ACS. There is no evidence of pancreatitis. Most of her symptoms seem to be nausea with loose stools she may have some sort of gastroenteritis. I have ruled her out for any kind of pneumonia or pneumothorax. She was mostly concerned about her heart. This has been ruled out she otherwise now feels back to normal. She does not meet admission criteria. I will admit her. Lab Data Labs: Laboratory Results - last 24 hr 03/11/23 21:55 WBC 9.1 RBC 4.46 Hgb 13.4 Hct 39.3 MCV 88.1 MCH 30.0 MCHC 34.1 RDW Std Deviation 38.6 RDW Coeff of Rosamaria 11.9 Plt Count 381 MPV 9.6 Immature Gran % (Auto) 0.200 Neut % (Auto) 52.0 Lymph % (Auto) 37.4 [place] % (Auto) 7.7 Eos % (Auto) 2.0 Baso % (Auto) 0.7 Absolute Neuts (auto) 4.7 Absolute Lymphs (auto) 3.40 Nucleated RBC % 0 D-Dimer Quant (PE/DVT) 0.32 Sodium 137 Potassium 3.6 Chloride 105 Carbon Dioxide 27.0 Anion Gap 5 BUN 10 Creatinine 0.89 Estim Creat Clear Calc 68.12 Est GFR (MDRD) Af Amer 89 Est GFR (MDRD) Non-Af 74 BUN/Creatinine Ratio 11.2 Glucose 98 Calcium 9.2 Troponin I High Sens 3 Lipase 42 Discharge Plan Triage Chief Complaint: Chest Pain Other Complaint: Abd Pain ED Provider: Elian Kay Dx/Rx/DC Orders Clinical Impression: Nausea & vomiting, Chest pain Instructions: ED Chest Pain, Noncardiac Prescriptions: No Action hydrocortisone-pramoxine 2.5-1 % cream 1 applic NV TID-QID PRN (Reason: hemorrhoids) Qty: 30 0RF vitamin B complex Capsule 1 cap PO DAILY vitamin A-vitamin C-vitamin E Tablet 1 tab PO DAILY Rx Instructions: administer with a meal tranexamic acid [Lysteda] 650 mg tablet 650 mg PO TID Qty: 30 6RF Rx Instructions: Take 3 times a day at the onset of menses. Take for a max of 5 days. multivitamin Tablet 1 tab PO DAILY ascorbic acid (vitamin C) [Vitamin C] 500 mg Capsule, Extended Release 500 mg PO DAILY Adrenal Essence 42-80-07-400 mg Capsule 1 cap PO DAILY Primary Care Provider: Alyse Pierce Referrals: Alyse Pierce DO [Primary Care Provider] - 3-5 Days Disposition Disposition: Home, Self Care
[2023-03-11 21:59] LABS: Absolute Neutrophil Count 4.7 X10^3/uL (2.0-7.7); Basophil# 0.06 X10^3/uL; Basophil% 0.7 % (0-1); Eosinophil# 0.18 X10^3/uL; Hematocrit 39.3 % (37-47); Hemoglobin 13.4 g/dL (12.0-15.0); Lymphocyte % 37.4 % (19-41); Mean Corp Hgb Conc 34.1 g/dL (32-36); Mean Corpuscular Volume 88.1 fL (81-99); Mean Platelet Vol. 9.6 fl (6.2-12.0); Monocyte% 7.7 % (0-10); NRBC Flagged by Analyzer 0 % (0-5); Neutrophil # 4.74 X10^3/uL (2.7-7.7); Platelet Count 381 K/mm3 (150-450); RBC Distribution Width CV 11.9 % (11.6-14.6); RBC Distribution Width SD 38.6 fl (35.1-43.9); Red Blood Count 4.46 M/mm3 (4.2-5.4); White Blood Count 9.1 K/mm3 (4.4-11.0)
[2023-03-11 22:10] LABS: D-Dimer Quantitative (DVT/PE) 0.32 FEU/ug/m (0.27-0.49)
--- NOTE | 2023-03-11 22:27 | RAD_ITS ---
INDICATION: chest pain EXAMINATION/TECHNIQUE: X-RAY - XR Chest 1 View COMPARISON: None. Findings: Single frontal view of the chest. LUNG PARENCHYMA: No acute focal airspace disease or mass lesion. PLEURA: No pleural effusion. No pneumothorax. HEART/GREAT VESSELS: Cardiomediastinal silhouette is unremarkable. BONES: Osseous structures are unremarkable for age. RAD/Chest 1 View (Portable) IMPRESSION: Chest with no acute disease. Electronically Signed: Eliseo Mckee MD at 22:49 EDT ,
[2023-03-11 22:29] LABS: Anion Gap 5 (5-15); BUN 10 mg/dL (7-18); BUN/Creat Ratio 11.2 RATIO (10-20); Calcium,Total 9.2 mg/dL (8.5-10.1); Chloride 105 mmol/L (98-107); Creatinine, Serum 0.89 mg/dL (0.55-1.02); EST Glomerular Filtration Rate 74 mL/min (>60); Est Glom Filt Rate - Afr Amer 89 mL/min (>60); Estimated Creatinine Clearance 68.12 ml/min; Glucose 98 mg/dL (74-106); Lipase 42 U/L (13-75); Potassium 3.6 mmol/L (3.5-5.1); Sodium Level 137 mmol/L (136-145); Troponin-I HS (w/2H Reflex) 3 pg/mL (3.0-54.0)
[2023-03-11 22:35] VITALS: BP 116/79; PULSE 61; RESP 15; O2SAT 97
[2023-03-11 23:56] LABS: Reflex Troponin-HS? (from REC) Y
== END 2023-03-11 22:54 | disposition home or self-care (01) ==
PROVIDERS: Emergency Provider Emergency Medicine; PCP Internal Medicine; Visit Provider Emergency Medicine
DX: R11.2 Nausea with vomiting, unspecified (principal); R07.9 Chest pain, unspecified; Z87.891 Personal history of nicotine dependence; Z86.16 Personal history of COVID-19
CPT/HCPCS: 71045; 80048; 83690; 84484; 85025; 85379; 93005; 99285; A4216

== ENCOUNTER → 2024-02-29 18:27 | Outpatient (REF) | payer OTHER, SELFPAY ==
[2024-02-29 18:38] LABS: Absolute Lymphocyte Count 2.08 X10^3/uL (0.83-4.51); Absolute Neutrophil Count 3.9 X10^3/uL (2.0-7.7); Basophil# 0.07 X10^3/uL; Eosinophils% 1.5 % (0-5); Hematocrit 39.6 % (37-47); Hemoglobin 13.3 g/dL (12.0-15.0); Lymphocyte # 2.08 X10^3/ul (0.83-4.51); Lymphocyte % 30.9 % (19-41); Mean Corp Hgb Conc 33.6 g/dL (32-36); Mean Corpuscular Volume 89.2 fL (81-99); Mean Platelet Vol. 10.5 fl (6.2-12.0); Monocyte# 0.57 X10^3/uL; Monocyte% 8.5 % (0-10); NRBC Flagged by Analyzer 0 % (0-5); Neutrophil # 3.91 X10^3/uL (2.7-7.7); Platelet Count 360 K/mm3 (150-450); RBC Distribution Width CV 12.1 % (11.6-14.6); RBC Distribution Width SD 39.5 fl (35.1-43.9); Red Blood Count 4.44 M/mm3 (4.2-5.4); White Blood Count 6.7 K/mm3 (4.4-11.0)
[2024-02-29 18:49] LABS: ALB/GLOB Ratio 1.2 RATIO (0.9-2.4); AST(SGOT) 11 U/L (15-37); Alanine Aminotransfer ALT/SGPT 20 U/L (13-56); Albumin, Serum 3.9 g/dL (3.2-5.0); Alkaline Phosphatase 78 U/L (45-117); Anion Gap 7 (5-15); BUN 7 mg/dL (7-18); Calcium,Total 9.4 mg/dL (8.5-10.1); Chloride 105 mmol/L (98-107); EST Glomerular Filtration Rate 96 mL/min (>60); Est Glom Filt Rate - Afr Amer 117 mL/min (>60); Globulin 3.3 g/dL (2.2-4.2); Glucose 82 mg/dL (74-106); Potassium 4.3 mmol/L (3.5-5.1); Protein, Total 7.2 g/dL (6.4-8.2); Sodium Level 138 mmol/L (136-145)
== END ==
LOC: LABSPEC 18:27
PROVIDERS: PCP Internal Medicine; Referring Provider Family Medicine; Visit Provider Family Medicine
DX: R53.83 Other fatigue (principal)
CPT/HCPCS: 80053; 85025

== ENCOUNTER → 2024-05-14 | Outpatient (CLI) | payer OTHER, SELFPAY ==
[2024-05-14 16:18] LABS: Absolute Lymphocyte Count 1.75 X10^3/uL (0.83-4.51); Absolute Neutrophil Count 3.6 X10^3/uL (2.0-7.7); Basophil# 0.02 X10^3/uL; Basophil% 0.3 % (0-1); Eosinophil# 0.14 X10^3/uL; Eosinophils% 2.4 % (0-5); Hematocrit 36.8 % (37-47); Hemoglobin 12.4 g/dL (12.0-15.0); Lymphocyte # 1.75 X10^3/ul (0.83-4.51); Lymphocyte % 29.6 % (19-41); Mean Corp Hgb Conc 33.7 g/dL (32-36); Mean Corpuscular Hgb 29.9 pg (27.0-32.0); Mean Corpuscular Volume 88.7 fL (81-99); Mean Platelet Vol. 9.8 fl (6.2-12.0); Monocyte# 0.41 X10^3/uL; Monocyte% 6.9 % (0-10); NRBC Flagged by Analyzer 0 % (0-5); Neutrophil # 3.59 X10^3/uL (2.7-7.7); Neutrophil % 60.6 % (47-70); Platelet Count 355 K/mm3 (150-450); RBC Distribution Width CV 11.9 % (11.6-14.6); RBC Distribution Width SD 38.5 fl (35.1-43.9); Red Blood Count 4.15 M/mm3 (4.2-5.4); White Blood Count 5.9 K/mm3 (4.4-11.0)
[2024-05-14 16:24] LABS: Erythrocyte Sedimentation Rate 4 mm/hr (0-30)
[2024-05-14 16:58] LABS: ALB/GLOB Ratio 1.1 RATIO (0.9-2.4); AST(SGOT) 8 U/L (15-37); Alanine Aminotransfer ALT/SGPT 19 U/L (13-56); Albumin, Serum 3.7 g/dL (3.2-5.0); Alkaline Phosphatase 65 U/L (45-117); Anion Gap 5 (5-15); BUN 11 mg/dL (7-18); BUN/Creat Ratio 14.2 RATIO (10-20); CRP < 2.90 mg/L (0.0-3.0); Chloride 107 mmol/L (98-107); Creatinine, Serum 0.78 mg/dL (0.55-1.02); EST Glomerular Filtration Rate 86 mL/min (>60); Est Glom Filt Rate - Afr Amer 104 mL/min (>60); Free T3 2.3 pg/mL (2.18-3.98); Globulin 3.4 g/dL (2.2-4.2); Glucose 95 mg/dL (74-106); LDH 144 U/L (84-246); Potassium 3.6 mmol/L (3.5-5.1); Protein, Total 7.1 g/dL (6.4-8.2); Sodium Level 139 mmol/L (136-145); T4 Free Direct 1.03 ng/dL (0.76-1.46)
[2024-05-20 11:09] LABS: ACCA 13 units (0-90); ALCA 16 units (0-60); AMCA 7 units (0-100); Albumin 3.8 g/dL (2.9-4.4); Alpha-1-Globulins 0.3 g/dL (0.0-0.4); Alpha-2-Globulins 0.6 g/dL (0.4-1.0); Cytoplasmic Ab (C-ANCA) <1:20 titer (Neg:<1:20); Endomysial Antibody IgA Negative (Negative); Gamma Globulin 1.3 g/dL (0.4-1.8); Immunoglobulin A 174 mg/dL (87-352); Immunoglobulin E 121 IU/mL (6-495); Immunoglobulin G 1167 mg/dL (586-1602); Immunoglobulin M 241 mg/dL (26-217); PROEL- TOTAL PROTEIN 6.9 g/dL (6.0-8.5); Perinuclear Ab (P-ANCA) <1:20 titer (Neg:<1:20); gASCA 0 units (0-50); t-Transglutaminase IgA <2 U/mL (0-3)
[2024-05-20 14:08] LABS: Anti-Centromere B Ab <0.2 AI (0.0-0.9); Anti-Chromatin <0.2 AI (0.0-0.9); Anti-Jo <0.2 AI (0.0-0.9); Anti-Scleroderma-70 AB <0.2 AI (0.0-0.9); Anti-dsDNA Ab <1 IU/mL (0-9); Beef <0.10 kU/L (Class 0); Chocolate <0.10 kU/L (Class 0); Codfish <0.10 kU/L (Class 0); Corn <0.10 kU/L (Class 0); Egg, Whole <0.10 kU/L (Class 0); Milk (Cow) <0.10 kU/L (Class 0); Mussels <0.10 kU/L (Class 0); Peanut <0.10 kU/L (Class 0); Pork <0.10 kU/L (Class 0); RNP Ab 0.3 AI (0.0-0.9); SJOGREN'S Anti-SS-A test < 0.2 AI (0.0-0.9); SJOGREN'S Anti-SS-B test < 0.2 AI (0.0-0.9); Salmon <0.10 kU/L (Class 0); Shrimp <0.10 kU/L (Class 0); Smith Ab <0.2 AI (0.0-0.9); Soybean <0.10 kU/L (Class 0); Tuna <0.10 kU/L (Class 0); Wheat <0.10 kU/L (Class 0)
== END | disposition home or self-care (01) ==
LOC: LAB 15:50
PROVIDERS: PCP Registered Nurse; Referring Provider Student in an Organized Health Care Education/Training Program; Visit Provider Student in an Organized Health Care Education/Training Program
DX: R19.7 Diarrhea, unspecified (principal)
CPT/HCPCS: 36415; 80053; 82784; 82785; 83516; 83615; 84165; 84439; 84443; 84481; 85025; 85652; 86003; 86005; 86036; 86037; 86140; 86225; 86235; 86255; 86334; 86671

== ENCOUNTER → 2024-05-15 | Outpatient (CLI) | payer OTHER, SELFPAY ==
[2024-05-17 07:09] LABS: Calprotectin, Stool 47 ug/g (0-120)
[2024-05-19 02:07] LABS: Pancreatic Elastase, Fecal > 800 (>200)
== END | disposition home or self-care (01) ==
LOC: LABSPEC 08:36
PROVIDERS: PCP Registered Nurse; Referring Provider Student in an Organized Health Care Education/Training Program; Visit Provider Student in an Organized Health Care Education/Training Program
DX: R19.7 Diarrhea, unspecified (principal); K58.9 Irritable bowel syndrome, unspecified
CPT/HCPCS: 82653; 83630; 83993; 87177; 87209; 87329; 87493; 87506

== ENCOUNTER 2024-06-24 08:35 | Day surgery (SDC) | payer OTHER, SELFPAY ==
[2024-06-24] VITALS (8 sets, daily range): BP systolic 88–103; BP diastolic 58–66; PULSE 65–78; RESP 16–18; TEMP 36.7–37.2; O2SAT 97–99; BMI 24.0
--- NOTE | 2024-06-24 08:57 | PCM.HP.STD ---
HPI - General General Date of Admission: 06/24/24 Date of Service: 06/24/24 Chief Complaint: abdominal pain HPI Narrative PIOTR REDDY, is a 44 F who presents to the office today for establishment with [facility]. Over the past year pt has been struggling with her health. She has been having flares of urgent diarrhea starting in December 2022. These are episodic and will last for a few days and then resolve until the next flare. When she has diarrhea she will have cramping abdominal pain and have 30 seconds to make it the toilet. She has had accidents on occasion. She has seen her PCP and a naturopathic doctor for these concerns. She was put on a strict diet with no sugar, gluten, egg or soy. This has helped some but she continues to feel unwell in general. She has had a 40 lbs weight loss over the past year. Her PCP put her on Xifaxan which has actually made her constipated which she feels is better than the diarrhea. Recent gallbladder US was normal. She is also having some gynecologic issues with fibroids and an ovarian lesion. She has a f/u appointment today with Gynecology. Her last colonoscopy was in 2022 for BRBPR and it was prior to these issues with diarrhea. These symptoms are affecting her life and she would like to rule everything out. Gallbladder US 9.27.24; no significant findings PFSH Medical History History of hemorrhoids Food sensitivity with gastrointestinal symptoms Nausea Weight loss Wears contact lenses Wears glasses Gastric reflux History of echocardiogram Hemorrhoids COVID-19 Former smoker Home Medications ?Medication ?Instructions ?Recorded ?Last Taken ?Type ondansetron HCl 4 mg tablet 4 mg PO Q8H 04/30/24 06/23/24 History Lactobacillus acidophilus 10 100 mmu cells PO DAILY 06/19/24 06/23/24 History billion cell capsule (NewFlora) calcium carbonate-vitamin D3 500 1 cap PO DAILY 06/19/24 06/23/24 History mg (1,250 mg)-50 unit capsule Allergy/AdvReac Type Severity Reaction Status Date / Time No Known Allergies Allergy Verified 06/24/24 09:01 Family History Grandfather Colon cancer Aunt Colon cancer Surgical History Hx of wisdom tooth extraction History of colonoscopy (~2002) S/P laparoscopic appendectomy Social History Smoking Status: Former smoker ROS Constitutional Constitutional: Denies fatigue, fever(s), poor appetite, weight gain or weight loss Gastrointestinal Gastrointestinal: Denies belching, bloating, change in bowel habits, change in stool character, chewing difficulty, coffee ground emesis, constipation, cramping, diarrhea, dyspepsia, dysphagia, early satiety, excessive flatus, fecal incontinence, heartburn, hematemesis, hematochezia, hemorrhoids, loose stools, melena, nausea, odynophagia, rectal bleeding, tenesmus, vomiting or weight changes Physical Exam Const alert, oriented x3 and no apparent distress HEENT normocephalic and head/scalp atraumatic Resp normal respiratory effort Cardio regular rate GI soft to palpation; Negative for non-distended Palpation: tender RLQ; Negative for guarding Extremity no clubbing, cyanosis or edema Neuro CN's II-XII intact bilaterally Psych mental status grossly normal Assessment & Plan Assessment/Plan (1) Diarrhea: (2) BRBPR (bright red blood per rectum): (3) Nausea: (4) Weight loss: (5) Hemorrhoids: PLAN: Plan (1) Nausea and vomiting: (2) Diarrhea: Status: Acute Plan: This is a 44 yo female pt here today for evaluation of chronic diarrhea for the past year. She has flares of urgent diarrhea multiple times per day happening every couple of days. She has had a 40 lbs weight loss over the past year which makes me concerned for inflammatory bowel disease or autoimmune process. I will order blood work with IBD panel and celiac panel. She will also complete stool tests for EPI. infection or inflammation. She has concerns about her gallbladder although her US was normal. I will order HIDA scan to rule out biliary dyskinesia.She will undergo colonoscopy to assess for colitis. It is possible her symptoms are related to IBS or her gynecologic conditions but we will rule out other etiologies before we assume this. She is agreeable to plan. -Blood work and stool tests -Colonoscopy -HIDA scan -f/u after procedure Orders: Orders Allergen, Food Profile 14 Today R19.7 - Diarrhea, unspecified DEANDRE Comprehensive Panel Today R19.7 - Diarrhea, unspecified ANCA Today R19.7 - Diarrhea, unspecified Calprotectin, Stool Today R19.7 - Diarrhea, unspecified CBC W/Diff, Automated Today R19.7 - Diarrhea, unspecified CDIFF (PCR) Today R19.7 - Diarrhea, unspecified Celiac Disease Profile Today R19.7 - Diarrhea, unspecified Comprehensive Metabolic Profil Today R19.7 - Diarrhea, unspecified JOSÉ MIGUEL + Protein Elect, Serum Today R19.7 - Diarrhea, unspecified IBD Expanded Profile Today R19.7 - Diarrhea, unspecified Giardia Lamblia, Stool EIA Today R19.7 - Diarrhea, unspecified Free T3 Today R19.7 - Diarrhea, unspecified Erythrocyte Sed Rate Today R19.7 - Diarrhea, unspecified ENTERIC PATHOGEN PANEL STOOL Today K58.9 - Irritable bowel syndrome, unspecified, R19.7 - Diarrhea, unspecified CRP Today R19.7 - Diarrhea, unspecified Immunoglobulins G/A/M/E Today R19.7 - Diarrhea, unspecified LDH Today R19.7 - Diarrhea, unspecified Ova and Parasites [id number] Today K58.9 - Irritable bowel syndrome, unspecified, R19.7 - Diarrhea, unspecified Pancreatic Elastase, Fecal Today R19.7 - Diarrhea, unspecified Stool Lactoferrin/WBC Today K58.9 - Irritable bowel syndrome, unspecified, R19.7 - Diarrhea, unspecified T4 Free Direct Today R19.7 - Diarrhea, unspecified Thyroid Stim Hormone (TSH) Today R19.7 - Diarrhea, unspecified Hepatobilliary Img w/Pharm Int Today R19.7 - Diarrhea, unspecified I have examined the patient and the H&P has been reviewed. There are no clinical changes since date of exam.
[2024-06-24 09:11] LABS: Internal QC Validated? YES +Cl - CLEAR BKGD; Pregnancy, Urine Negative Negative
--- NOTE | 2024-06-24 09:17 | PCM.PRE.AN2 ---
ASA Classification* ASA Classification ASA Classification: 1 Assessment & Plan Anesthesia* Anesthesia Assessment Anesthesia Assessment: Discussed sedation and/or anesthesia options, risks, benefits, and alternatives with patient/parents/legal guardian/POA. Questions invited. The patient/parents/legal guardian/POA seems to understand and agrees to proceed with anesthesia plan. Reviewed the physical assessment, medical history, allergy history and patient home medications list prior to surgery/procedure/anesthetic and documented any changes. Performed airway and anesthesia risk assessments. Anesthesia Type Anesthesia Type: MAC History Source History Obtained from:: Patient and Chart Anesthesia Focused Assessment* Temperature: 98.7 F Pulse Rate: 78 Blood Pressure: 103/66 Respiratory Rate: 18 Pulse Ox: 98 Oxygen Delivery Method: Room Air Airway Assessment Mouth opens: >3 cm Mallampati Score: II Teeth Condition: Caps/Crowns (Patient has a couple of crowns left side 1 is upper and and 1 lower.) Neck Range of motion (ROM): Full ROM Focused Labs Anesthesia Preop lab: CBC WBC 5.9 K/mm3 (4.4-11.0) 05/14/24 15:56 RBC 4.15 M/mm3 (4.2-5.4) L 05/14/24 15:56 Hgb 12.4 g/dL (12.0-15.0) 05/14/24 15:56 Hct 36.8 % (37-47) L 05/14/24 15:56 Plt Count 355 K/mm3 (150-450) 05/14/24 15:56 CHEMISTRY Potassium 3.6 mmol/L (3.5-5.1) 05/14/24 15:56 Sodium 139 mmol/L (136-145) 05/14/24 15:56 BUN 11 mg/dL (7-18) 05/14/24 15:56 Creatinine 0.78 mg/dL (0.55-1.02) 05/14/24 15:56 Glucose 95 mg/dL (74-106) 05/14/24 15:56 TSH 2.280 uIU/mL (0.358-3.740) 05/14/24 15:56 COAG PT 12.6 SECONDS (11.7-14.9) 08/25/21 23:07 Urine Test Negative Negative 06/24/24 08:49 Pre-Assessment Diagnosis/Proposed Procedure Planned Operative Procedure(s): CSCOPE Anesthesia History 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 When Was Last Pacemaker Check QUESTION #4 FULL TEXT: You/Your Family Experience fever (hyperthermia) with Anesthesia Last Oral Intake Last Oral intake: Last Oral Intake NPO since 00:00 06/24/24 09:02 Meds taken in AM with sips of No 06/24/24 09:02 water? Meds patient instructed to take am of surgery Any additional information?: Yes NPO since: 06:05 (Patient finished prep at 6:05 AM.) PONV PONV - public improvement inspector: PONV - public improvement inspector Female Yes 06/19/24 16:10 HX of Motion Sickness No 06/19/24 16:10 HX of N/V After Surgery No 06/19/24 16:10 Non-Smoker Yes 06/19/24 16:10 Duration of Surgery greater No 06/19/24 16:10 than 60 minutes Number of Risk Factors 2 06/19/24 16:10 PONV Score Moderate Risk 06/19/24 16:10 Height & Weight Height & Weight: Anesthesia: Height & Weight Height 5 ft 3 in 06/24/24 09:02 Weight: 61.4 kg 06/24/24 09:02 Body Mass Index (BMI) 24.0 06/24/24 09:02 Respiratory Assessment Respiratory Assessment - public improvement inspector: Respiratory Tract Infection Hx - public improvement inspector Hx Respiratory Tract Infection No 06/19/24 16:10 STOP Sleep Apnea STOP Sleep Apnea - public improvement inspector: STOP Sleep Apnea - public improvement inspector Hx Hypertension No 06/19/24 16:10 Hx Sleep Apnea No 06/19/24 16:10 CPAP BIPAP Do you snore loudly (louder No 06/19/24 16:10 than talking or can be heard Do you often feel tired/ No 06/19/24 16:10 fatigued/ sleepy during daytime? Has anyone observed you stop No 06/19/24 16:10 breathing during sleep? STOP Results Negative 06/19/24 16:10 QUESTION #5 FULL TEXT : Do you snore loudly (louder than talking or can be heard through closed doors)? Tobacco Use History Tobacco Use History - public improvement inspector: Tobacco Use History - public improvement inspector Tobacco Use Smoking Status Former smoker 06/19/24 16:10 Hx Tobacco Use No 06/19/24 16:10 Years Smoking Packs Smoked per Day Smoking Cessation Date was No - quit smoking greater 06/19/24 16:10 within the last 15 years than 15 years ago Hx Smoking Cessation Date 07/03/92 06/19/24 16:10 Hx Smoking Cessation Counseling Hematologic Medial History Hematologic Hx - public improvement inspector: Hematologic Medical Hx - information assoc Hx of Blood Transfusion No 06/19/24 16:10 Hx of Transfusion in last 3 No 06/19/24 16:10 Months Date of Last Transfusion (if within last 3 months) Ever experience any problems No 06/19/24 16:10 with transfusion(s)? Specify any problems Hx of Preganancy in last 3 N/A 06/19/24 16:10 Months Nurse Filling Out Transfusion NBUCHER 06/19/24 16:10 & Questions: Date: 06/19/24 06/19/24 16:10 Time: 16:10 06/19/24 16:10 Patient unable to answer at this time (ie. confused, unrespo /Reproduction History /Reproductive History - public improvement inspector: /Reproductive Hx- public improvement inspector Hx Now Gestational Age (in weeks): EDC: Hx Hx Para Hx Section SAB No 06/19/24 16:10 PFSH Medical History History of hemorrhoids Food sensitivity with gastrointestinal symptoms Nausea Weight loss Wears contact lenses Wears glasses Gastric reflux History of echocardiogram Hemorrhoids COVID-19 Former smoker Home Medications ?Medication ?Instructions ?Recorded ?Last Taken ?Type ondansetron HCl 4 mg tablet 4 mg PO Q8H 04/30/24 06/23/24 History Lactobacillus acidophilus 10 100 mmu cells PO DAILY 06/19/24 06/23/24 History billion cell capsule ([employer]) calcium carbonate-vitamin D3 500 1 cap PO DAILY 06/19/24 06/23/24 History mg (1,250 mg)-50 unit capsule Allergy/AdvReac Type Severity Reaction Status Date / Time No Known Allergies Allergy Verified 06/24/24 09:01 Family History Grandfather Colon cancer Aunt Colon cancer Surgical History Hx of wisdom tooth extraction History of colonoscopy (~2002) S/P laparoscopic appendectomy Social History Smoking Status: Former smoker Review of Systems (Anesthesia) ROS Narrative System reviewed and no additional complaints, except as documented.
--- NOTE | 2024-06-24 09:45 | COLBX_PTH ---
PATIENT: PIOTR REDDY LOC: EN U#:[id number] AGE/SX: 44/F ROOM: RE06/24/[address]: Dr. Felipe Lui DO : 1980 BED: DIS: 06/24/2024 SPEC #: [id number] RECD: 06/24/24 12:44 STATUS: MERRILL REEduardo #: [id number] PENELOPE: 06/24/24 09:[address]: Felipe Lui DEPT: SURGICAL PATHOLOGY RECD BY: Freddy Langford ENTERED: 06/24/24 14:16 SP TYPE: COLON BX OT DR: Angie Archer, SURVEYOR HELPER ROD-C Tissues: A - Ileum, NOS B - COLON BIOPSY Procedures: Surgery Specimen Level IV HEADER OPERATION: Colonoscopy with biopsy PRE-OP DIAGNOSIS: Diarrhea, BRBPR, nausea, weight loss, hemorrhoids TISSUE SUBMITTED: A. Terminal ileum, B. Random colon MICROSCOPIC DIAGNOSIS A. Terminal ileum, biopsy: Fragments of small intestinal mucosa, no pathologic diagnosis. B. Random colon, biopsy: Fragments of colonic mucosa, no pathologic diagnosis. 06/25/2024 MICROSCOPIC DESCRIPTION Slides are reviewed. GROSS DESCRIPTION A. Received is one container labeled with the patient name and designated terminal ileum. The specimen consists of multiple irregular fragments of light albarado soft tissue that in aggregate measure 1.4 x 0.2 x 0.1 cm. The specimen is totally submitted in one cassette. B. Received is one container labeled with the patient name and designated random colon. The specimen consists of multiple irregular fragments of light albarado soft tissue that in aggregate measure 1.5 x 0.2 x 0.1 cm. The specimen is totally submitted in one cassette. /MS:abdelrahman 06/24/24 TC:4 CPT: 41779 x2
--- NOTE | 2024-06-24 10:11 | OP.COLON_ITS ---
Patient Name: Carole Rodriguez Procedure Date: 06/24/2024 9:45 AM Date of : 1980 Age: 44 Procedure: Colonoscopy Indications: Abdominal pain in the left lower quadrant, Abdominal pain in the left upper quadrant, Periumbilical abdominal pain, Clinically significant diarrhea of unexplained origin, Hematochezia Providers: Felipe Lui DO Referring MD: Sudheer Kimbrough Medicines: Monitored Anesthesia Care Patient Profile: This is a 44 year old female. Refer to note in patient chart for documentation of history and physical. Last Colonoscopy: several years ago. Complications: No immediate complications. Procedure: Pre-Anesthesia Assessment: - Prior to the procedure, a History and Physical was performed, and patient medications and allergies were reviewed. The patient is competent. The risks and benefits of the procedure and the sedation options and risks were discussed with the patient. All questions were answered and informed consent was obtained. Patient identification and proposed procedure were verified by the physician in the pre-procedure area. Mental Status Examination: alert and oriented. Airway Examination: normal oropharyngeal airway and neck mobility. Respiratory Examination: clear to auscultation. CV Examination: normal. Prophylactic Antibiotics: The patient does not require prophylactic antibiotics. Prior Anticoagulants: The patient has taken no anticoagulant or antiplatelet agents except for NSAID medication. ASA Grade Assessment: II - A patient with mild systemic disease. After reviewing the risks and benefits, the patient was deemed in satisfactory condition to undergo the procedure. The anesthesia plan was to use monitored anesthesia care (MAC). Immediately prior to administration of medications, the patient was re-assessed for adequacy to receive sedatives. The heart rate, respiratory rate, oxygen saturations, blood pressure, adequacy of pulmonary ventilation, and response to care were monitored throughout the procedure. The physical status of the patient was re-assessed after the procedure. After I obtained informed consent, the scope was passed under direct vision. Throughout the procedure, the patient's blood pressure, pulse, and oxygen saturations were monitored continuously. The Colonoscope was introduced through the anus and advanced to the terminal ileum. The colonoscopy was performed without difficulty. The patient tolerated the procedure well. The quality of the bowel preparation was poor. Scope In: 9:53:52 AM Scope Withdrawal Time 0 hours 6 minutes 22 seconds Scope Out: 10:05:27 AM Total Procedure Duration Time 0 hours 11 minutes 35 seconds Findings: The perianal and digital rectal examinations were normal. Non-bleeding internal hemorrhoids were found during retroflexion. The hemorrhoids were mild, small and Grade I (internal hemorrhoids that do not prolapse). Stool was found in the entire colon, interfering with visualization. Lavage of the area was performed, resulting in incomplete clearance with fair visualization. An area of mildly congested mucosa was found in the recto-sigmoid colon, in the sigmoid colon and in the descending colon. Biopsies were taken with a cold forceps for histology. Verification of patient identification for the specimen was done. Estimated blood loss was minimal. Patchy mild inflammation characterized by erosions and erythema was found in the terminal ileum. Biopsies were taken with a cold forceps for histology. Verification of patient identification for the specimen was done. Estimated blood loss was minimal. Impression: - Preparation of the colon was poor. - Non-bleeding internal hemorrhoids. - Stool in the entire examined colon. - Congested mucosa in the recto-sigmoid colon, in the sigmoid colon and in the descending colon. Biopsied. - Mild inflammation was found in the ileum secondary to ileitis. Biopsied. Recommendation: - Discharge patient to home. - Resume previous diet. - Continue present medications. - Await pathology results. - Repeat colonoscopy in 5 years for surveillance. Procedure Code(s): --- Professional --- 22487, Colonoscopy, flexible; with biopsy, single or multiple CPT copyright 2021 [employer]. All rights reserved. The codes documented in this report are preliminary and upon master control engineer review may be revised to meet current compliance requirements. Felipe Lui DO 06/24/2024 10:11:14 AM This report has been signed electronically. Number of Addenda: 0 Note Initiated On: 06/24/2024 9:45 AM
--- NOTE | 2024-06-24 10:12 | OP.CCLET_ITS ---
06/24/2024 Sudheer Kimbrough Re : Colonoscopy procedure for Carole Rodriguez Dear Suzi This procedure was performed on Monday, June 24, 2024. My impressions and recommendations are as follows: Impressions : - Preparation of the colon was poor. - Non-bleeding internal hemorrhoids. - Stool in the entire examined colon. - Congested mucosa in the recto-sigmoid colon, in the sigmoid colon and in the descending colon. Biopsied. - Mild inflammation was found in the ileum secondary to ileitis. Biopsied. Recommendations : - Discharge patient to home. - Resume previous diet. - Continue present medications. - Await pathology results. - Repeat colonoscopy in 5 years for surveillance. My findings are described in the full procedure note, which is enclosed. If I can be of further assistance, please feel free to contact me at . Sincerely, Felipe Lui, 06/24/2024 10:11:14 AM This report has been signed electronically.
--- NOTE | 2024-06-24 10:13 | PCM.POST.ANE ---
Anesthesia: Postop Eval I Current Vital Signs Temperature: 98.9 F Pulse Rate: 67 Blood Pressure: 88/58 Respiratory Rate: 16 Pulse Ox: 98 Oxygen Delivery Method: Room Air Assessment Airway patent: Yes Spontaneous unlabored respirations: Yes Mental status: Awake and Calm nausea: No Vomiting: No Anesthesia Complication: No Fluid Hydration Crystalloid volume administer (ml): 40 Total IV fluid infused: 40 Progress Note Anesthesia document: Postop Eval 1 completed: Yes
--- NOTE | 2024-06-24 14:55 | PCM.POSTANE2 ---
Anesthesia Postop Eval I Sum Postop Eval Completion status Anesthesia document: Postop Eval 1 completed: Yes Anesthesia Postop Eval I Summary Anesthesia Postop Eval I Summary: Anesthesia Postop Eval I: Assessment Summary Airway patent Yes 06/24/24 10:14 [email or web address] Spontaneous unlabored Yes 06/24/24 10:14 [email or web address] respirations Mental status Awake,Calm 06/24/24 10:14 [email or web address] nausea No 06/24/24 10:14 [email or web address] Vomiting No 06/24/24 10:14 [email or web address] Anesthesia Postop Eval I: Fluid Summary Crystalloid volume administer 40 06/24/24 10:14 [email or web address] (ml) Colloids volume administered ( ml) Blood Product volume administered (ml) Total IV fluid infused 40 06/24/24 10:14 [email or web address] Anesthesia Postop Eval I: Summary Notes Anesthesia Complication No 06/24/24 10:14 [email or web address] Anesthesia Complication Comment: Post-operative progress note Anesthesia: Postop Eval II Evaluation Mental status: Awake and Calm Pain Level: 0 nausea: No Vomiting: No Complications Anesthesia Complication: No
== END 2024-06-24 11:05 | disposition home or self-care (01) ==
LOC: EN 08:36 → AC 08:37
PROVIDERS: Anesthesiology; PCP Registered Nurse; Referring Provider Registered Nurse; Visit Provider Internal Medicine Gastroenterology
PROC: 0DJD8ZZ Inspection of Lower Intestinal Tract, Via Natural or Artificial Opening Endoscopic (ICD-10-PCS; CPT 45378; principal; 2024-06-24 09:40)
DX: K63.89 Other specified diseases of intestine (principal); R19.7 Diarrhea, unspecified; K64.0 First degree hemorrhoids; Z86.16 Personal history of COVID-19; Z87.891 Personal history of nicotine dependence; Z80.0 Family history of malignant neoplasm of digestive organs
CPT/HCPCS: 45380; 81025; 88305; A4216; J2405

== ENCOUNTER → 2024-07-01 | Outpatient (CLI) | payer OTHER, SELFPAY ==
--- NOTE | 2024-07-01 11:14 | NM_ITS ---
CLINICAL: 44-year-old female with history of postprandial diarrhea. RADIONUCLIDE HEPATOBILIARY SCINTIGRAPHY COMPARISON: None available FINDINGS: Following the intravenous administration of 6.0 mCi of 99m Tc Mebrofenin, hepatobiliary images reveal: 1. Relatively prompt and homogeneous radiopharmaceutical concentration is noted by a normal sized liver. No parenchymal defects are identified. 2. Gallbladder activity is identified at 15 minutes post radiopharmaceutical administration. 3. Small intestinal tract is observed at 45 minutes following tracer injection. 4. Washout of the radiopharmaceutical by the hepatic parenchyma appears qualitatively normal. Cholecystokinin (0.02 ug/kg) was administered intravenously over a 30-minute period. The post CCK gallbladder ejection fraction calculated at 20 minutes following Cholecystokinin administration was noted to be 93.0 % (normal greater than 35%). During 30 minutes of post CCK imaging, there is no scintigraphic evidence of reflux of the radiotracer into the common hepatic duct or refilling of the gallbladder. NM/Hepatobilliary Img w/Pharm Int IMPRESSION: 1. NORMAL 99m Tc Mebrofenin hepatobiliary imaging examination with Cholecystokinin. A. A gallbladder ejection fraction calculated to be greater than 35% following the administration of Cholecystokinin makes the probability of functional hepatobiliary disease (gallbladder and/or sphincter of Oddi dyskinesia) and/or organic hepatobiliary disease (chronic acalculous cholecystitis and/or cystic duct syndrome) to be low. (Demetri Burciaga et al, Journal of Nuclear Medicine 32:1695, 1991). Electronically Signed: Monico Hicks DO at 8:39 EST ,
== END | disposition home or self-care (01) ==
LOC: NM 11:14
PROVIDERS: PCP Registered Nurse; Referring Provider Student in an Organized Health Care Education/Training Program; Visit Provider Student in an Organized Health Care Education/Training Program
DX: R19.7 Diarrhea, unspecified (principal)
CPT/HCPCS: 78227; A9537; J2805

== ENCOUNTER → 2024-07-26 | Outpatient (CLI) | payer OTHER, SELFPAY ==
--- NOTE | 2024-07-26 12:21 | MRI_ITS ---
MR Enterography Abdomen/Pelvis W/ Contrast 07/26/2024 1:42 PM COMPARISON: CT 08/26/2021 CLINICAL HISTORY: K52.9 - Noninfective gastroenteritis and colitis, unspecified -- Ileitis, diarrhea r/o IBD TECHNIQUE: Following oral administration of enteric contrast and administration of glucagon, multiplanar T1 and T2 weighted images along with dynamic post-gadolinium images were obtained through the abdomen and pelvis. FINDINGS: GI Tract: Normal caliber. Questionable minimal wall thickening and mucosal hyperenhancement of the terminal ileum. No stricture, fistula, or obstruction. No drainable fluid collections. Liver: Unremarkable Gallbladder: Unremarkable Spleen: Unremarkable Pancreas: Unremarkable Adrenal Glands: Unremarkable Kidneys: Unremarkable Bladder: Unremarkable Reproductive: Multi-fibroid uterus. Lymphadenopathy: Absent Ascites: Absent Bones: No suspicious lesions MRI/Enterography Abd/Pel IMPRESSION: Questionable minimal wall thickening and mucosal hyperenhancement of the terminal ileum could represent terminal ileitis which is non-specific. No stricture, fistula, or obstruction. No drainable fluid collections. Multi fibroid uterus. Electronically Signed: Juan Carbone MD at 16:21 EST ,
[2024-07-26 12:47] VITALS: BP 120/92; PULSE 70; RESP 18; O2SAT 100; BMI 23.9
[2024-07-26] MEDS: 0.9% Saline Lock 10 ML Syringe IV (13:54)
[2024-07-26] MEDS: Glucagon 1 MG/ML Syringe IV (13:54)
[2024-07-26 14:10] VITALS: BP 115/57; PULSE 65; RESP 18; O2SAT 100
== END | disposition home or self-care (01) ==
PROVIDERS: PCP Registered Nurse; Referring Provider Internal Medicine Gastroenterology; Visit Provider Internal Medicine Gastroenterology
DX: K52.9 Noninfective gastroenteritis and colitis, unspecified (principal)
CPT/HCPCS: 74183; 96374; A9575; A4216; J1610

== ENCOUNTER → 2024-08-28 | Outpatient (CLI) | payer OTHER, SELFPAY ==
--- NOTE | 2024-08-28 10:21 | NM_ITS ---
PROCEDURE: GASTRIC EMPTYING STUDY REASON FOR EXAM: Abdominal bloating with the diarrhea/constipation and nausea. TECHNIQUE: The patient ingested a mixture of 1.1 mCi technetium sulfur colloid and oatmeal. RADIOPHARMACEUTICAL: 1.1 mCi of technetium labeled sulfur colloid. COMPARISON: None. FINDINGS: 50% of the radiopharmaceutical exited the stomach at 40 minutes. NM/Gastric Emptying Study IMPRESSION: Normal gastric emptying examination. Reading Location: [id number]
== END | disposition home or self-care (01) ==
LOC: NM 10:19
PROVIDERS: PCP Registered Nurse; Referring Provider Student in an Organized Health Care Education/Training Program; Visit Provider Student in an Organized Health Care Education/Training Program
DX: R14.0 Abdominal distension (gaseous) (principal); R11.0 Nausea
CPT/HCPCS: 78264; A9541